=== PATIENT | male | born 1950 | race Caucasian/White ===

== ENCOUNTER 2019-10-13 10:33 | Inpatient (IN) | payer OTHER ==
[2019-10-13] VITALS (16 sets, daily range): BP systolic 45–107; BP diastolic 15–76
[~2019-10-13] VITALS: Ht 180.3 cm; Wt 69.6 kg
--- NOTE | ~2019-10-13 | EMS ---
[facility] [address] [place] [id number] EMS Patient Care Report Name: DANIELLE VILLELA Room #: 440-P ADM IN M.R.#: [id number] Admission: 10/13/19 Attend Phys: Alton Jovel MD Discharge: Date of : 46 Report #: [id number] THIS REPORT FOR: //name// Report Transmitted: 10/15/2019 09:00 EMS Care Summary [place], [place]/[facility] Incident [id number] @ 10/13/2019 09:47 Incident Location [address] [place] [address] Patient DANIELLE VILLELA Male, 69 Years 1950 Patient Address [address] [place] [address] Patient History Cancer, Unspecified, Patient Allergies No known allergies, Patient Medications Loperamide, Atorvastatin, Dexamethasone, Alprazolam, Duloxetine, Levothyroxine, Gabapentin, Aspirin, Disposition Transported No Lights/[place] Dispatch Reason Sick Person Transported To [facility] Narrative dispatched for a sick person. upon arrival pt was found laying in bed. he stated that he woke up weaker then normal. pts was on scene and stated that the pt had stage 4 cancer and was usually weak but this was not normal. pt also stated that he was having some lower back pain that felt like spasms. the then stated that the pt had a fever the previous day but was self administered some Tylenol which help subside the fever. pt denied any nausea or [facility] [address] [place] [address] EMS Patient Care Report Name: DANIELLE VILLELA Room #: 440-P ADM IN M.R.#: [id number] Admission: 10/13/19 Attend Phys: Alton Jovel MD Discharge: Date of : 46 Report #: [id number] shortness of breath. pt was transferred onto the stretcher which was placed next to the bed via draws sheet method. once in the ambulance vitals were obtained with a patent iv established. 4 lpm via nc was then administered to the pt. his saturation then improved during transport. after arrival pt was transferred onto ed bed via draw sheet method. Initial Vitals @10:19P: 87,BP: 59/41,Pain: 6/10,GCS: 15,SpO2: 79, @10:24P: 80,R: 20,BP: 77/51,Pain: 6/10,GCS: 15,SpO2: 91,Revised Trauma: 11, @10:17P: 86,R: 20,BP: 69/44,Pain: 6/10,GCS: 15,SpO2: 79,Revised Trauma: 10, Assessments @09:57MENTAL:Person Oriented,Time Oriented,Place Oriented,Event Oriented,SKIN:HEENT:Head/Face: No Abnormalities,Neck/Airway: No Abnormalities,LUNG SOUNDS:General: No Abnormalities,ABDOMEN:General: No Abnormalities,PELVIS//GI:No Abnormalities,EXTREMITIES:Capillary Refill: Right Upper: < 2 Sec,Left Arm: No Abnormalities,Right Arm: No Abnormalities,Left Leg: No Abnormalities,Right Leg: No Abnormalities,PULSE:Radial: 2+ Normal,NEURO:No Abnormalities, Impression Generalized Weakness Procedures @10:20Oxygen FlowRate: 4 Device: Nasal Cannula (NC) Response: ImprovedSucceeded@10:18Normal Saline (.9% NaCl) 100cc (20 ga) Site: Antecubital-LeftResponse: UnchangedSucceeded Timeline 09:45,Call Received 09:45,Dispatch Notified 09:47,Dispatched 09:48,En Route 09:56,On Scene 09:57,At Patient 10:17,BP: 69/44 M,PULSE: 86,RR: 20 R,SPO2: 79 Ox,ETCO2: ,BG: ,PAIN: 6,GCS: 15, 10:17,Depart Scene 10:18,Normal Saline (.9% NaCl) 100cc 20 ga Site: Antecubital-Left,Response: UnchangedSucceeded, 10:19,BP: 59/41 M,PULSE: 87,RR: R,SPO2: 79 Ox,ETCO2: ,BG: ,PAIN: 6,GCS: 15, 10:20,Oxygen FlowRate: 4 Device: Nasal Cannula (NC) Response: ImprovedSucceeded, 10:24,BP: 77/51 M,PULSE: 80,RR: 20 R,SPO2: 91 Ox,ETCO2: ,BG: ,PAIN: 6,GCS: 15, 10:25,At Destination 10:41,Call Closed Disclaimer [facility] [address] [place] [address] EMS Patient Care Report Name: DANIELLE VILLELA Room #: 440-P ADM IN M.R.#: [id number] Admission: 10/13/19 Attend Phys: Alton Jovel MD Discharge: Date of : 46 Report #: [id number] v1.1 Copyright 2020 [employer] This EMS Care Summary contains data elements from the applicable legal record (which may be displayed differently). It is designed to provide pertinent information for the following purposes: continuity of care, clinical quality, and state data reporting. The complete legal record is available to ED staff and administrators of the receiving hospital in [facility]'s Patient Tracker. All data is provided "as is."
--- NOTE | ~2019-10-13 | HC ---
[facility] [place] [address] CONSULTATION Name: DANIELLE VILLELA Room #: 245-P [facility] IN .R.#: [id number] Admission: 10/13/19 Attend Phys: Alton Jovel MD Discharge: Date of : 46 Report #: [id number] THIS REPORT FOR: cc: PENNIE Everett family physician/PCP PENNIE Everett family physician/PCP Bharati Bush MD ~ CC: Alton CASPER physician/PCP Jose Fournier REASON FOR CONSULTATION: Elevated creatinine. HISTORY OF PRESENT ILLNESS: A 69-year-old with history of renal cell carcinoma with mets to the bone. He presented to the hospital yesterday with his , reporting that he has been having some weakness with decreased oral intake. He denies any abdominal pain. Family also reported some diarrhea. There is a history of fever on their presentation and the patient was admitted to rule out COVID-19 infection. Currently, the patient is followed by Hematology/Oncology for his renal cell carcinoma. He is status post nephrectomy. He received appropriate IV fluid resuscitation on his presentation and his creatinine has come down from 2.4 to 1.6 to 1.2. He had hyperkalemia; however, this has resolved with potassium coming down to a normal level at 5. I was consulted to manage his acute kidney injury. PAST MEDICAL HISTORY: 1. Renal cell carcinoma post-nephrectomy. 2. Undergoing chemotherapy. 3. Depression. 4. Anxiety. 5. Hypothyroidism. SOCIAL HISTORY: He lives with his . REVIEW OF SYSTEMS: GENERAL: Significant for fever. CARDIOVASCULAR: No chest pain or palpitation. PULMONARY: Significant for cough, but no hemoptysis. GASTROINTESTINAL: As per the history of present illness. GENITOURINARY: No frequency, no urgency. MUSCULOSKELETAL: Myalgias. SKIN: No rash or ulcerations. HOME MEDICATIONS: 1. Atorvastatin. 2. Aspirin. 3. Gabapentin. 4. Levothyroxine. [facility] [address] [place] [address] CONSULTATION Name: DANIELLE VILLELA Room #: [facility]#: [id number] Admission: 10/13/19 Attend Phys: Alton Jovel MD Discharge: Date of : 46 Report #: [id number] 6. Celecoxib. 7. Dexamethasone. PHYSICAL EXAMINATION: GENERAL: He is alert, oriented, in no apparent distress. VITAL SIGNS: Blood pressure is 98/58, temperature is 36, pulse rate is 66, respiratory rate is 8. HEAD AND NECK: No jugular venous distention. CHEST: No crackles. CARDIOVASCULAR: No rub. ABDOMEN: Soft, nontender. EXTREMITIES: Lower extremities, no edema. LABORATORY DATA: Reviewed. Hemoglobin is 9.6. Sodium is 139, potassium is 5, BUN is 30, creatinine is 1.2 TSH is high at 35. IMPRESSION AND PLAN: 1. Acute kidney injury due to hypertension. 2. Solitary kidney, status post nephrectomy undergoing chemotherapy for renal cell carcinoma. 3. The patient responded very well to IV fluid. His creatinine is now down to his normal level. Continue with aggressive fluid resuscitation. No need for any pressors as long as the patient is able to tolerate fluids. 4. He is being ruled out for potential infection as a source of his fever. He was started on appropriate antibiotic and thyroid along with steroid replacement given his significant hypotension and hyperkalemia. 5. No further renal recommendations. I will sign off. By: [id number] 1112 Bharati Bush MD /nt
[~2019-10-13 10:33] MED LIST: ACETAMIN-CODE12.5 ML PO; ASPIRIN81 M2 PO; ATORVASTATIN CA10 MG PO; CELEBREX 200 M200 MG PO; DEXILANT30 MG PO; EFFIENT10 MG PO; HYDROCODON-ACE1 EAC5 PO; METOPROLOL SUCC25 M1 PO; MULTI-VITAMIN1 EAC5 PO; PROTONIX40 M1 PO
[2019-10-13 11:11] LABS: BASOPHILS 0.4 % (0.0-2.0); EOSINOPHILS 0.1 % (0.0-3.0); HEMATOCRIT 39.7 % (42.0-52.0); HEMOGLOBIN 13.2 gm/dL (14.0-18.0); LYMPHOCYTES 9.2 % (24.0-44.0); MCH 31.9 pg (26.0-34.0); MCHC 33.2 g/dL (28.0-37.0); MONOCYTES 3.3 % (1.0-8.0); PLATELET COUNT 252 thou/uL (150-400); RBC 4.14 mil/uL (4.50-6.00); RDW 25.2 % (10.5-14.5); WBC 9.2 thou/uL (4.0-11.0)
[2019-10-13] MEDS ORDERED: ALPRAZOLAM XR3 MG PO (11:27)
[2019-10-13] MEDS ORDERED: CABOMETYX60 MG PO (11:28)
[2019-10-13] MEDS ORDERED: CALCIUM + D3 E1 EACH PO (11:30)
[2019-10-13] MEDS ORDERED: CELEBREX 200 M200 MG PO (11:30)
[2019-10-13] MEDS ORDERED: DEXAMETHASONE 22 M1 PO (11:31)
[2019-10-13] MEDS ORDERED: CYMBALTA60 MG PO (11:31)
[2019-10-13] MEDS ORDERED: GABAPENTIN100 MG PO (11:32)
[2019-10-13] MEDS ORDERED: LEVOXYL137 MCG PO (11:32)
[2019-10-13] MEDS ORDERED: ONDANSETRON ODT4 MG PO (11:33)
[2019-10-13] MEDS ORDERED: LOPERAMIDE2 MG PO (11:33)
[2019-10-13] MEDS ORDERED: OXYCODONE HCL E40 MG PO (11:34)
[2019-10-13] MEDS ORDERED: ROXICODONE5 M2 PO (11:35)
[2019-10-13 11:40] LABS: ALBUMIN 3.1 g/dL (3.4-5.0); ANION GAP 8 mmol/L (7-16); BUN 40 mg/dL (7-18); CALCIUM 8.5 mg/dL (8.5-10.1); CHLORIDE 98 mmol/L (98-107); CO2 25 mmol/L (21-32); CREATININE 2.4 mg/dL (0.7-1.3); DIRECT BILIRUBIN < 0.1 mg/dL (<0.1-0.2); GLUCOSE 88 mg/dL (74-106); SGOT 51 U/L (15-37); SGPT 37 U/L (30-65); SODIUM 131 mmol/L (136-145); TOTAL BILIRUBIN 0.9 mg/dL (<0.1-1.0); TOTAL PROTEIN 7.1 g/dL (6.4-8.2)
[2019-10-13 11:44] LABS: POTASSIUM 6.2 mmol/L (3.5-5.1)
[2019-10-13 12:49] LABS: ANISOCYTOSIS 3+
[2019-10-13 12:50] LABS: MACROCYTES 1+; MICROCYTES 1+
--- NOTE | 2019-10-13 14:09 | EKG ---
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
--- NOTE | 2019-10-13 15:48 | NUR ---
VASCULAR ACCESS CONSULTED FOR CVAD. PT HAS LOW BP. ORDER,CONSENT,LABS,HISTORY [id number]. RIJ WAS WIDELY PATENT WITH USG. 25CM 6FR POWER JACC INSERTED TO 6CM EXTERNAL. CXR STATED TOO DEEP, WITHDREW ADDITIONAL 3CM FOR TOTAL 9CM 2ND CXR CONFIRMED CAJ. RIJ RELEASED FOR IMMEDIATE USE PER PROTOCOL TO CONSTANZA MISTRY
[2019-10-13 16:43] LABS: URINE BILIRUBIN NEGATIVE (Negative); URINE BLOOD NEGATIVE (Negative); URINE CLARITY CLEAR; URINE COLOR YELLOW; URINE GLUCOSE-RANDOM* NEGATIVE (Negative); URINE KETONES NEGATIVE (Negative); URINE LEUKOCYTES-REFLEX NEGATIVE (Negative); URINE NITRITE-REFLEX NEGATIVE (Negative); URINE PROTEIN (DIPSTICK) TRACE (Negative); URINE SPECIFIC GRAVITY 1.025 (1.005-1.035); URINE UROBILINOGEN 0.2 E.U./dl (0.2-1.0)
--- NOTE | 2019-10-13 17:32 | NUR ---
PATIENT ESCORTED TO ICU FROM ED BY RN. PATIENT AOX4, FORGETFUL. SINGH PATENT AND SECURED. PATIENT RECEIVED CHLOROHEXADINE WIPE BATH. ON MONITOR. SCD'S IN PLACE, CONSENTS SIGNED. FALL PRECAUTIONS IN PLACE AND EDUCATION PROVIDED TO PATIENT. ARRIVED WITHOUT ANY MEDICATION INFUSING. SBP 106. PATIENT USED BEDPAN ON ARRIVAL.
[2019-10-13 21:31] LABS: BE(vivo) -8.5 mmol/L (-2 to +3); HCO3 17.7 mmol/L (22.0-26.0); PO2 86.5 mmHg (80.0-100.0); sO2 95.4 % (92.0-98.0)
[2019-10-13 21:33] LABS: pH 7.275 (7.360-7.450)
[2019-10-13 21:57] LABS: HEMATOCRIT 29.2 % (42.0-52.0); MCH 32.1 pg (26.0-34.0); MCHC 32.8 g/dL (28.0-37.0); MCV 97.8 fL (80.0-100.0); RBC 2.98 mil/uL (4.50-6.00); RDW 25.3 % (10.5-14.5); WBC 7.2 thou/uL (4.0-11.0)
[2019-10-13 22:06] LABS: HEMOGLOBIN 9.6 gm/dL (14.0-18.0); PLATELET COUNT 163 thou/uL (150-400)
[2019-10-13 22:11] LABS: CALCIUM 7.1 mg/dL (8.5-10.1); CREATININE 1.6 mg/dL (0.7-1.3)
[2019-10-13 22:12] LABS: APTT 45.4 Seconds (24.5-32.8); FIBRINOGEN 336.8 mg/dL (210-360); INR 1.2; PROTIME 12.7 Seconds (9.3-11.4)
[2019-10-13 22:15] LABS: POTASSIUM 4.9 mmol/L (3.5-5.1)
[2019-10-13 22:18] LABS: ALBUMIN 2.2 g/dL (3.4-5.0); TOTAL BILIRUBIN 0.9 mg/dL (<0.1-1.0); TOTAL PROTEIN 5.6 g/dL (6.4-8.2)
[2019-10-13 23:06] LABS: ABSOLUTE NEUTROPHILS 6.5 thou/uL (1.4-8.2); ANISOCYTOSIS 1+; POLYCHROMASIA OCCASIONAL
[2019-10-14] VITALS (17 sets, daily range): BP systolic 85–176; BP diastolic 54–97
[2019-10-14 05:44] LABS: HEMOGLOBIN 9.6 gm/dL (14.0-18.0); MCH 32.2 pg (26.0-34.0); MCV 97.5 fL (80.0-100.0); RBC 2.97 mil/uL (4.50-6.00); RDW 25.9 % (10.5-14.5); WBC 6.5 thou/uL (4.0-11.0)
[2019-10-14 06:07] LABS: CALCIUM 6.4 mg/dL (8.5-10.1); CREATININE 1.2 mg/dL (0.7-1.3)
--- NOTE | 2019-10-14 07:52 | NUR ---
ASSESSMENTS CHARTED, MEDS GIVEN CHARTED. PATIENT GOES BY [facility]. ARRIVED ON DAY SHIFT. CONSULTS WERE CALLED ON BELL CLERK, DR. QUEZADA PUT HIM ON SEPSIS PROTOCOL. DR. WOOD TWEEKED THE ORDERS TO GIVE MORE IV FLUID BOLUS AND NOT START THE LEVOPHED. PATIENTS LABS MOVED TOWARDS NORMAL RANGE. PATIENT SLEPT MOST OF NIGHT. PATIENT WAS OBSERVED PERIODS OF APNEA DURING SLEEP. BREATHS WENT DOWN TO 7 BREATHS A MINUTE AT TIMES DURING SLEEP.
--- NOTE | 2019-10-14 11:50 | NUR ---
ASSESSMENT: CM REVIEWED CHART AND SPOKE WITH PATIENTS . PT WAS ADMITTED DUE TO WEAKNESS AND SOB. PT IS CURRENTLY IN ISOLATIONG AND BEING TESTED FOR COVID 19. RESULTS ARE STILL PENDING. PT IS CURRENTLY ON 2L OXYGEN AND IS NOT ON ANY AT HOME. PTS REPORTS THEY LIVE IN A HOME WITH TWO STEPS TO ENTER WITH HANDRAILS AND NO STEPS ONCE INSIDE. PT NORMALLY AMBULATES WITH A CANE OF WALKER. PT HAS A GRAB BAR AND SHOWER CHAIR AND IS INDEPENDENT WITH ADLS. PT HAS HAD A PAST HX OF HH BUT UNSURE OF WHAT THE AGENCY IS. PT HAS ALSO BEEN TO AN ACUTE REHAB IN THE PAST AFTER A SURGERY (RHOP). REPORTS SHE WOULD LIKE THERAPY TO SEE PATIENT BEFORE HE LEAVES. CM DISCUSSED WITH ATTENDING. PT/OT WILL EVAL PT PRIOR TO DISCHARGE. PLANS ARE FOR PATIENT TO MOVE OUT OF ICU TODAY. CM WILL CONTINUE TO FOLLOW TO ASSIST NEEDED.
--- NOTE | 2019-10-14 12:20 | NUR ---
ASSESSMENT: CM REVIEWED CHART AND SPOKE WITH PATIENTS . PT WAS ADMITTED DUE TO WEAKNESS AND SOB. PT HAS PAST HX OF RENAL CA. PT IS CURRENTLY IN ISOLATIONG AND BEING TESTED FOR COVID 19. RESULTS ARE STILL PENDING. PT IS CURRENTLY ON 2L OXYGEN AND IS NOT ON ANY AT HOME. PTS REPORTS THEY LIVE IN A HOME WITH TWO STEPS TO ENTER WITH HANDRAILS AND NO STEPS ONCE INSIDE. PT NORMALLY AMBULATES WITH A CANE OF WALKER. PT HAS A GRAB BAR AND SHOWER CHAIR AND IS INDEPENDENT WITH ADLS. PT HAS HAD A PAST HX OF HH BUT UNSURE OF WHAT THE AGENCY IS. PT HAS ALSO BEEN TO AN ACUTE REHAB IN THE PAST AFTER A SURGERY (RHOP). REPORTS SHE WOULD LIKE THERAPY TO SEE PATIENT BEFORE HE LEAVES. CM DISCUSSED WITH ATTENDING. PT/OT WILL EVAL PT PRIOR TO DISCHARGE. PLANS ARE FOR PATIENT TO MOVE OUT OF ICU TODAY. PT REMAINS ON IV ANBX AND IV FLUIDS. CM WILL CONTINUE TO FOLLOW TO ASSIST NEEDED.
--- NOTE | 2019-10-14 12:49 | NUR ---
ASSESSMENT CHARTED, ALERT AND ORIENTED 3-4, MEDS GIVEN SCHEDULED, AND MEDICATED FOR PAIN INDICATED. VSS AND SR ON THE MONITOR. SINGH TO DD WITH AN ADEQUATE AMOUNT OF URINE AT THIS TIME. PROGRESSING TOWARDS GOALS AND WILL CONTINUE TO MONITOR. ORDERS TO TRANFER IS IN WAITING FOR MED/SURG BED.
--- NOTE | 2019-10-15 03:32 | NUR ---
RECIEVED CARE OF THIS PATIENT AT 1900 FROM ICU. BP WAS UP, CALLED TO GET SOMETHING, RECIEVED MED AND GIVEN. AT MN BP WAS 113/54. C/O PAIN IN FRANKLIN LEGS OF 2. DAUGHTER CALLED 3TIMES. CONCERNED ABOUT RAISED BP AND MEDS PATIENT WAS GETTING. IV IN RIJ WITH FLUIDS INFUSING. PATIENT ALERT AND ORIENTED X4 BUT IS FORGETFUL. TOLD FAMILY EARLIER THAT HE WAS AT A HOTEL. TOLD THIS NURSE THAT HE TOLD THEM THAT AND THAT HE WAS NOT IN A HOTEL BUT IN THE HOSPITAL. SLEPT MOST OF THIS SHIFT.
[2019-10-15 03:44] VITALS: BP 132/85
[2019-10-15 05:48] LABS: CALCIUM 6.4 mg/dL (8.5-10.1); CREATININE 0.9 mg/dL (0.7-1.3)
[2019-10-15 06:20] LABS: POTASSIUM 3.6 mmol/L (3.5-5.1)
--- NOTE | 2019-10-15 10:07 | HC ---
[facility] [place] [address] CONSULTATION Name: DANIELLE VILLELA Room #: 440-P [facility] IN ..#: [id number] Admission: 10/13/19 Attend Phys: Alton Jovel MD Discharge: Date of : 46 Report #: [id number] THIS REPORT FOR: cc: PENNIE Everett family physician/PCP PENNIE Everett family physician/PCP Kassie Yanes MD ~ CC: Alton CASPER physician/PCP Jose Fournier DATE OF SERVICE: 10/14/2019 ENDOCRINE CONSULTATION CONSULTING PHYSICIAN: Dr. Jovel. REASON FOR CONSULTATION: Severe hypothyroidism. HISTORY OF PRESENT ILLNESS: This is a 69-year-old male patient whose medical background is significant for multiple medical issues including renal carcinoma, solitary kidney, hypothyroidism, who was admitted here following progressive issues with fever and weakness. It appears that the patient has gotten progressively weak and dehydrated and was less responsive and lethargic to where he was admitted for further care and monitoring. There have not been issues with chest pain, shortness of breath, cough, nausea or vomiting. The patient has chronic hypothyroidism and is maintained on a regimen of levothyroxine 137 mcg daily, which is reportedly consistent regimen of his. Also, the patient is noted to have hypothyroidism and is maintained on atorvastatin 20 mg daily. Again, the patient is known to have a history of renal carcinoma, status post nephrectomy with potential or with possible baseline chronic kidney disease. REVIEW OF SYSTEMS: CONSTITUTIONAL: Lethargy, fatigue, tiredness, reported fever, but not chills, no body weight changes. HEENT: Negative for sore throat, sinus pain or ear drainage. PULMONARY: No shortness of breath, cough or hemoptysis. CARDIAC: Lightheadedness. Reports of low blood pressure. No syncope, no chest pain. GASTROINTESTINAL: No abdominal pain, nausea, vomiting or changes in bowel movement frequency; however, reportedly had a diminished p.o. intake. NEUROLOGY: Negative for loss of consciousness, seizure activity. Severe frequent headaches. [facility] [address] [place] [address] CONSULTATION Name: TIKADANIELLE Room #: [address] [place] [address] [place] ..#: [id number] Admission: 10/13/19 Attend Phys: Alton Jovel MD Discharge: Date of : 46 Report #: [id number] SKIN: Negative for rash, ulceration or other significant changes. Otherwise, review of systems noncontributory other than those mentioned in HPI. PAST MEDICAL HISTORY: 1. Renal cell carcinoma. 2. Chronic kidney disease. 3. Anxiety. 4. Depression. 5. Hypothyroidism. 6. Neuropathy. 7. Hyperlipidemia. 8. Acid reflux disease. 9. Benign prostatic hypertrophy. 10. Osteoarthritis. 11. History of CAD, status post stent placement in 2010, status post CABG in 10/2015. PAST SURGICAL HISTORY: Includes thyroidectomy, appendectomy, bilateral knee replacements, CABG x 3 in 10/2015, nephrectomy. OUTPATIENT MEDICATIONS: Include: 1. Aspirin 81 mg daily. 2. Multivitamin daily. 3. Atorvastatin 20 mg daily. 4. Alprazolam 0.5 mg daily p.r.n. 5. ____ 60 mg daily. 6. Calcium carbonate with vitamin D daily. 7. Celebrex 200 mg daily. 8. Dexamethasone 1 mg p.o. b.i.d. 9. Cymbalta 60 mg daily. 10. Gabapentin 200 p.o. q. 8 hours. 11. Levothyroxine 137 mcg daily. 13. Loperamide 2 mg q. 4 hours p.r.n. 14. Oxycodone 40 mg q. 12 hours. ALLERGIES: No known drug allergies. FAMILY HISTORY: Noncontributory. SOCIAL HISTORY: The patient is an ex-smoker. There are no reports of active alcohol use or illicit drug use. PHYSICAL EXAMINATION: GENERAL: male patient who is not in apparent pain or distress. VITAL SIGNS: Blood pressure 117/71, heart rate 79 beats per minute, respirations 14 per minute, temperature 35.9 [place] [address] CONSULTATION Name: DANIELLE VILLELA Room #: 440-[facility].#: [id number] Admission: 10/13/19 Attend Phys: Alton Jovel MD Discharge: Date of : 46 Report #: [id number] CONSTITUTIONAL: The patient is sitting up in bed, appears lethargic, tired, but not in active pain or distress. HEENT: Anicteric sclerae. Intact extraocular motions. NECK: Supple, no JVD, no thyromegaly. The patient has a healed thyroidectomy scar. CHEST: Noted for moderate entry bilaterally with scattered rales and rhonchi. No wheeze or crackles. HEART: Regular rate and rhythm without murmurs or gallops. ABDOMEN: Soft, lax. No guarding. Active bowel sounds. EXTREMITIES: Lower extremity: No skin breaks or ulcerations. Trace edema is noted over both ankles. NEUROLOGIC: Awake, alert and interactive. Sensory deficits over both lower extremities, but moves all limbs spontaneously. PSYCH: Normal mood and affect, interactive. LABORATORY RESULTS: The patient had 3 blood glucose measurements ranging from 75-81 mg/dL. Otherwise, sodium 139, potassium 5.0, chloride 110, CO2 of 20, anion gap 9, BUN 30, creatinine 1.2, glucose 96, AST 33, total bilirubin 0.9, calcium 6.4, ALT 25, total protein 5.6, albumin 2.2. EGFR 60. Lactic acid 0.7. Total CPK 242. Troponin undetectable. Free T4 of 1.0. INR 1.2. White blood count 6.5, hemoglobin 9.6, hematocrit 29, platelets 164. TSH 35.295. He is being ruled out for COVID-19. ASSESSMENT AND PLAN: 1. Hypothyroidism, chronic. Undoubtedly, the patient's TSH is vastly uncontrolled at 35; however, this is in conjunction with a seemingly low normal free T4 at 1.0. The immediate implication is that of inconsistent levothyroxine intake as an outpatient. Given this outlook, I would only slightly raise his levothyroxine dosage to 150 mcg daily with a stress on the importance of consistent levothyroxine intake and proper intake on an empty stomach every morning for optimal absorption. Thyroid function studies will be needed again in 6-8 weeks to ensure the patient's stability. 2. Hyperlipidemia. The patient is currently on atorvastatin therapy and tolerates it well, he is to continue with the same. 3. Hypocalcemia. Significant, but falls within normal limits when corrected for the issue of hypoalbuminemia. 4. Hypotension, weakness. The patient presented with progressive lethargy, weakness, hypotension. I would like to obtain a random cortisol level to rule out the possibility of adrenal insufficiency. I certainly appreciate this consultation by Dr. Jovel. <ELECTRONICALLY SIGNED> By: Kassie Yanes MD 10/15/19 1007 1222 1414 Kassie Yanes MD /nt
[2019-10-15] MEDS ORDERED: CEFDINIR300 MG PO (11:44)
[2019-10-15] MEDS ORDERED: CULTURELLE KID1 EAC1 PO (11:45)
[2019-10-15 12:11] VITALS: BP 132/85
--- NOTE | 2019-10-15 12:12 | NUR ---
CARE TEAM INDICATED THAT PT IS MEDIALLY STABLE TO DISCHARGE HOME THIS DAY TO SELF CARE. PT HAS ALL RECOMMENDED DME. NO OTHER CM INTERVENTON INDICATED. PT'S SPOUSE TO PROVIDE DC TRANSPORT HOME AT 1500. NO OTHER CM INTERVENTION INDICATED. CASE CLOSED.
[2019-10-15] MEDS ORDERED: SYNTHROID100 MC1 PO (14:50)
--- NOTE | 2019-10-15 15:22 | NUR ---
VSS-AFEBRILE. LUNGS CLEAR-ROOM AIR. C/O PAIN IN BILATERAL LOWER EXTREMITIES. PAIN WELL CONTROLLED WITH PO PAIN MEDICATIONS. DISCUSSED DISCHARGE INSTRUCTIONS, INCLUDING NEW MEDICATIONS THAT HAVE BEEN PRESCRIBED. PATIENT AND SPOUSE VERBALIZED UNDERSTANDING OF ALL MATERIALS DISCUSSED. MEDICATED ON DC FOR PAIN OF 8/10. LEFT UNIT IN WHEELCHAIR WITH STAFF AND ALL PERSONAL BELONGINGS. LEFT HOPITAL WITH SPOUSE IN PRIVATE VEHICLE.
== END 2019-10-15 15:27 | disposition home or self-care (01) | DRG 682 ==
LOC: ER 10:33 → 4S 15:41 → EROBS 15:41 → ICU 15:41 → 4S 10-14 19:11
PROVIDERS: Emergency Medicine; Internal Medicine Pulmonary Disease; ADMIT Internal Medicine
PROC: 02H633Z Insertion of Infusion Device into Right Atrium, Percutaneous Approach (ICD-10-PCS; principal; 2019-10-13)
DX: N17.0 Acute kidney failure with tubular necrosis (principal); R57.1 Hypovolemic shock; J96.01 Acute respiratory failure with hypoxia; G93.41 Metabolic encephalopathy; E87.1 Hypo-osmolality and hyponatremia; C64.9 Malignant neoplasm of unspecified kidney, except renal pelvis; C79.51 Secondary malignant neoplasm of bone; Z96.653 Presence of artificial knee joint, bilateral; E89.0 Postprocedural hypothyroidism; I25.10 Atherosclerotic heart disease of native coronary artery without angina pectoris; K21.9 Gastro-esophageal reflux disease without esophagitis; E78.00 Pure hypercholesterolemia, unspecified; N40.0 Benign prostatic hyperplasia without lower urinary tract symptoms; M19.90 Unspecified osteoarthritis, unspecified site; F32.9 Major depressive disorder, single episode, unspecified; F41.9 Anxiety disorder, unspecified; N18.9 Chronic kidney disease, unspecified; E78.5 Hyperlipidemia, unspecified; I12.9 Hypertensive chronic kidney disease with stage 1 through stage 4 chronic kidney disease, or unspecified chronic kidney disease; E83.51 Hypocalcemia; I95.9 Hypotension, unspecified; G62.9 Polyneuropathy, unspecified; E87.5 Hyperkalemia; Z79.899 Other long term (current) drug therapy; Z90.49 Acquired absence of other specified parts of digestive tract; Z95.1 Presence of aortocoronary bypass graft; Z95.5 Presence of coronary angioplasty implant and graft; Z90.5 Acquired absence of kidney; Z20.828 Contact with and (suspected) exposure to other viral communicable diseases
CPT/HCPCS: 10078; 10100; 10102

== ENCOUNTER → 2019-12-28 | Outpatient (CLI) | payer OTHER, BC ==
[~2019-12-28] MED LIST changes: +ALPRAZOLAM XR3 MG PO; +CABOMETYX20 MG PO; +CABOMETYX60 MG PO; +CALCIUM + D3 E1 EACH PO; +CEFDINIR300 MG PO; +CEFUROXIME500 MG PO; +CULTURELLE KID1 EAC1 PO; +CYMBALTA60 MG PO; +DEXAMETHASONE 22 M1 PO; +GABAPENTIN100 MG PO; +LEVOXYL137 MCG PO; +LOPERAMIDE2 MG PO; +MIRALAX17 GM PO; +ONDANSETRON ODT4 MG PO; +OXYCODONE HCL E40 MG PO; +ROXICODONE5 M2 PO; +SENNA PLUS TAB1 EACH PO; +SYNTHROID100 MC1 PO
== END ==
LOC: SJCVC 09:58
PROVIDERS: ATTEND Internal Medicine
DX: I44.0 Atrioventricular block, first degree (principal); I25.10 Atherosclerotic heart disease of native coronary artery without angina pectoris; I47.2 Ventricular tachycardia; E78.5 Hyperlipidemia, unspecified; C64.9 Malignant neoplasm of unspecified kidney, except renal pelvis; Z95.1 Presence of aortocoronary bypass graft; Z79.899 Other long term (current) drug therapy; Z87.891 Personal history of nicotine dependence

== ENCOUNTER → 2020-01-18 | Outpatient (CLI) | payer OTHER, BC ==
[~2020-01-18] MED LIST changes: -CABOMETYX20 MG PO; -CEFUROXIME500 MG PO; -MIRALAX17 GM PO; -SENNA PLUS TAB1 EACH PO
== END ==
LOC: RAD 14:10
PROVIDERS: ATTEND Internal Medicine
DX: R13.10 Dysphagia, unspecified (principal)

== ENCOUNTER → 2020-03-21 | Outpatient (CLI) | payer OTHER, BC | LOC: RAD 06:05 | PROVIDERS: ATTEND Internal Medicine | DX: R13.10 Dysphagia, unspecified (principal) ==

== ENCOUNTER 2020-05-04 09:05 | Inpatient (IN) | payer OTHER, BC ==
[~2020-05-04] VITALS: Ht 175.3 cm; Wt 75.1 kg
--- NOTE | ~2020-05-04 | EMS ---
[facility] [address] [place] [address] EMS Patient Care Report Name: DANIELLE VILLELA II Room #: 201-P ADM IN M.R.#: [id number] Admission: 05/04/20 Attend Phys: Yana Rojas Discharge: Date of : 46 Report #: [id number] THIS REPORT FOR: //name// Report Transmitted: 05/04/2020 18:57 EMS Care Summary [place], [place]/[facility] Incident [id number] @ 05/04/2020 08:21 Incident Location [address] [place] [address] Patient DANAY VILLELA Male, 70 Years 1950 Patient Address [address] [place] [address] Patient History Bone Cancer,Kidney Cancer, Patient Allergies No known allergies, Patient Medications None Reported, Chief Complaint AMS Disposition Transported No Lights/[place] Reason Sick Person Transported To [facility] Narrative Arrived on the scene, with T15, for a 70 y/o male that is lying in his bed. said that the Pt is having a lot of pain in his hip and back area. said that the Pt has Kidney cancer that has moved to the bone. said that he has been having a lot more pain than normal and he is scheduled to have a [facility] [address] [place] [address] EMS Patient Care Report Name: DANIELLE VILLELA II Room #: 201-P ADM IN M.R.#: [id number] Admission: 05/04/20 Attend Phys: Yana Rojas Discharge: Date of : 46 Report #: [id number] MRI tomorrow to see if there is anything causing the pain. said that he isn't acting like his normal self either. 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 See Pt Assessment AMS, Possible Sepsis, Fever See Flowchart. Moved the Pt from the bed to the cot. In the process, Pt would scream in pain but would not tell me where or how much pain he is in. Transported to the hospital with zero change or incidents. Moved the Pt from the cot to the bed via sheet. Transferred care to receiving facility. Initial Vitals @08:44P: 71,R: 20,BP: 92/55,GCS: 14,CO: 8,SpO2: 94,Revised Trauma: 12, @08:54P: 79,R: 20,BP: 91/57,Pain: 6/10,GCS: 14,CO: 7,Revised Trauma: 12, @08:42P: 75,R: 20,BP: 101/59,GCS: 14,Temp: 101.1F,Glucose: 96,SpO2: 94,Revised Trauma: 12, Assessments @08:37MENTAL:Confused,Person Oriented,SKIN:Hot,HEENT:Head/Face: No Abnormalities,Eyes: No Abnormalities,Neck/Airway: No Abnormalities,LUNG SOUNDS:General: No Abnormalities,Left Upper: No Abnormalities,Right Upper: No Abnormalities,Left Lower: No Abnormalities,Right Lower: No Abnormalities,ABDOMEN:General: No Abnormalities,Left Upper: No Abnormalities,Right Upper: No Abnormalities,Left Lower: No Abnormalities,Right Lower: No Abnormalities,PELVIS//GI:EXTREMITIES:PULSE:NEURO: Impression Altered Mental Status Procedures @08:37ALS AssessmentResponse: UnchangedSucceeded@08:42Saline Lock 5cc (18 ga) Site: Antecubital-LeftResponse: UnchangedSucceeded Timeline 08:20,Call Received 08:20,Dispatch Notified 08:21,Dispatched 08:22,En Route 08:34,On Scene 08:37,At Patient 08:37,ALS Assessment,Response: UnchangedSucceeded, 08:42,Saline Lock 5cc 18 ga Site: Antecubital-Left,Response: UnchangedSucceeded, 08:42,BP: 101/59 M,PULSE: 75,RR: 20 R,SPO2: 94 Ox,ETCO2: ,B,PAIN: ,GCS: 14, [address] [address] EMS Patient Care Report Name: DANIELLE VILLELA EMBER Room #: 201-P ADM IN M.R.#: [id number] Admission: 05/04/20 Attend Phys: Yana Rojas Discharge: Date of : 46 Report #: [id number] 08:44,BP: 92/55 M,PULSE: 71,RR: 20 R,SPO2: 94 Ox,ETCO2: ,BG: ,PAIN: ,GCS: 14, 08:48,Depart Scene 08:54,BP: 91/57 M,PULSE: 79,RR: 20 R,SPO2: Ox,ETCO2: ,BG: ,PAIN: 6,GCS: 14, 08:55,At Destination 09:19,Call Closed Disclaimer v1.1 Copyright 2020 [employer] This EMS Care Summary contains data elements from the applicable legal record (which may be displayed differently). It is designed to provide pertinent information for the following purposes: continuity of care, clinical quality, and state data reporting. The complete legal record is available to ED staff and administrators of the receiving hospital in [employer] Patient Tracker. All data is provided "as is."
[2020-05-04 09:05] VITALS: BP 96/53
[2020-05-04 09:24] LABS: BASOPHILS 0.3 % (0.0-2.0); EOSINOPHILS 0.5 % (0.0-3.0); HEMOGLOBIN 10.8 gm/dL (14.0-18.0); LYMPHOCYTES 10.9 % (24.0-44.0); MCH 29.1 pg (26.0-34.0); MCHC 31.7 g/dL (28.0-37.0); MCV 91.8 fL (80.0-100.0); MONOCYTES 4.5 % (1.0-8.0); PLATELET COUNT 194 thou/uL (150-400); POLYS 83.8 % (36.0-66.0); RBC 3.71 mil/uL (4.50-6.00); RDW 16.9 % (10.5-14.5); WBC 7.2 thou/uL (4.0-11.0)
[2020-05-04 09:42] LABS: CALCIUM 9.5 mg/dL (8.5-10.1); CREATININE 1.4 mg/dL (0.7-1.3); POTASSIUM 4.7 mmol/L (3.5-5.1)
[2020-05-04 09:48] LABS: ALBUMIN 2.8 g/dL (3.4-5.0); TOTAL BILIRUBIN 0.5 mg/dL (0.2-1.0); TOTAL PROTEIN 7.3 g/dL (6.4-8.2)
[2020-05-04 09:58] LABS: AMP/METHAMP Negative (Negative); BARBITURATES Negative (Negative); BENZODIAZEPINES POSITIVE (Negative); COCAINE Negative (Negative); METHADONE Negative (Negative); OPIATES POSITIVE (Negative); PCP Negative (Negative)
[2020-05-04] MEDS ORDERED: SENNA PLUS TAB1 EACH PO (10:00)
[2020-05-04] MEDS ORDERED: MIRALAX17 GM PO (10:00)
[2020-05-04] MEDS ORDERED: CABOMETYX20 MG PO (10:02)
[2020-05-04 10:56] LABS: MAGNESIUM 1.9 mg/dL (1.8-2.4); TROPONIN-I <0.06 ng/mL (<0.06)
[2020-05-04 13:59] LABS: URINE BILIRUBIN NEGATIVE (Negative); URINE BLOOD 1+ (Negative); URINE CLARITY CLEAR; URINE COLOR YELLOW; URINE GLUCOSE-RANDOM* NEGATIVE (Negative); URINE KETONES NEGATIVE (Negative); URINE LEUKOCYTES-REFLEX NEGATIVE (Negative); URINE NITRITE-REFLEX NEGATIVE (Negative); URINE PROTEIN (DIPSTICK) NEGATIVE (Negative); URINE UROBILINOGEN 0.2 E.U./dl (0.2-1.0)
[2020-05-04 14:06] LABS: BACTERIA-REFLEX None Seen /HPF (None Seen); CASTS None Seen /LPF (None Seen); CRYSTALS None Seen /LPF (None Seen); SQUAMOUS None Seen /LPF (0-3); URINE RBC 3-10 Few /HPF (0-2); URINE WBC-REFLEX 0-5 Rare /HPF (0-5)
--- NOTE | 2020-05-04 14:38 | EKG ---
[facility] [place] [address] ELECTROCARDIOGRAM REPORT Name: DANIELLE VILLELA II Room #: REG [facility]..#: [id number] Admission: 05/04/20 Attend Phys: Discharge: Date of : 46 Report #: [id number] THIS REPORT FOR: cc: Jesus Manuel Rosario MD, Eric K. 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1950 Requested By: Fish Swain Order Number: [id number] MD: Kenny Lemon Measurements Intervals [place] Rate: 72 P: 25 [place]: 176 QRS: 64 QRSD: 107 T: 37 QT: 413 QTc: 453 Interpretive Statements Sinus rhythm Borderline low voltage, extremity leads Baseline wander in lead(s) V1 Compared to ECG 10/13/2019 12:03:24 No significant changes Electronically Signed On 05-04-2020 14:38:08 PHOTOGRAPHIC INTELLIGENCE OFFICER by Kenny Lemon [email or web address] <ELECTRONICALLY SIGNED> By: Kenny Lemon MD, FACC 05/04/20 1438 0932 0932 Kenny Lemon MD, FAC /EPI
--- NOTE | 2020-05-04 17:41 | NUR ---
PT CLEARED FROM ISOLATION PER MARIA EUGENIA DOUGLASS NURSE, AT 1719.
[2020-05-04 18:09] VITALS: BP 120/64
[2020-05-04 18:53] VITALS: BP 133/69
--- NOTE | 2020-05-04 19:59 | NUR ---
NEW ADMIT FROM ER ARRIVED 1829 INCREASED CONFUSION AND WEAKNESS. ALERTX3, FROM HOME WITH , RA DENIES SOB,DENIES PAIN, NSR ON TELE. VSS. PT INDICATES HE USES A WALKER AT HOME. SINGH IN PLACE NO BM NOTED 750 OUTPUT. NPO DUE TO DISPHAGIA, ST, PT,OT CONSULTED FOR EVALUATION. PT AND AWARE OF NPO STATUS. ADDED TO DESIGNATED VISITOR LIST. IV FLUIDS INFUSION RIGHT FORARM. REPORTED OFF TO NIGHT RN.
--- NOTE | 2020-05-04 23:19 | NUR ---
PATIENTS CARES WERE ASSUMED AT HIFT CHANGE. PATIENT HERE SINCE 10 OCLOCK AND NOT ADMITTED. pATIENT IS NOW ADMITTED AND ED REC WAS REVIEWED. PATIENT IS A KIDNEY CANCER PATIENT WITH METS TO THE BONE. THIS PATIENT WAS PLACED WITH NPO ORDERS FPR A PROCEDURE IN THE MORNING. THE ENOXAPARIN WAS HELD DUE TO A POSSIBLE BRONC.PATIENT WAS GIVEN 2 MG MORPHINE AND IS NOW RESTING WELL. THE BED IS IN THE LOW AND LOCKED POSITION
[2020-05-04 23:35] VITALS: BP 114/58
[2020-05-05] VITALS (7 sets, daily range): BP systolic 115–136; BP diastolic 62–80
--- NOTE | 2020-05-05 04:48 | NUR ---
PATIENT CARES WERE ASSUMED AT SHIFT CHANGE. THIS PATIENT CAME IN DUE TO MENTAL STATUS CHANGES. PATIENT IS TO REMAIN NPO DUE TO A SPEECH EVAL AND A POSSIBLE BRONC. PATIENT WAS GIVEN PAIN MEDS DUE TO C/O PAIN 03/26. HE DOES HAVE KIDNEY CANCER WITH METS TO THE BONE. THE BED IS IN A LOW AND LOCKED POSITION.
[2020-05-05 05:36] LABS: HEMATOCRIT 30.8 % (42.0-52.0); HEMOGLOBIN 9.8 gm/dL (14.0-18.0); MCH 29.1 pg (26.0-34.0); MCHC 31.7 g/dL (28.0-37.0); MCV 91.9 fL (80.0-100.0); RBC 3.35 mil/uL (4.50-6.00); WBC 9.4 thou/uL (4.0-11.0)
[2020-05-05 05:38] LABS: ALBUMIN 2.5 g/dL (3.4-5.0); CALCIUM 9.3 mg/dL (8.5-10.1); CREATININE 1.1 mg/dL (0.7-1.3); PHOSPHORUS 2.7 mg/dL (2.5-4.9); POTASSIUM 4.5 mmol/L (3.5-5.1)
--- NOTE | 2020-05-05 14:13 | NUR ---
PT ADMITTED RELATED TO METASTATIC KIDNEY CANCER, AKINESIA, DEHYDRATION. CM REVIEWED CHART AND SPOKE WITH CARE TEAM. CM CALLED AND SPOKE WITH PT AND SPOUSE OVER THE PHONE THIS DAY. SPOUSE INDICATED THAT THEY RESIDE IN A HOUSE WITH S STEPS TO ENTER AND NO STEPS PT USES INSIDE. SHE INIDCATED THAT PT HAS A FWW, CANE, 4WW, GB, AND SC FOR USE AT HOME. SHE INDICATED THAT FOR THE MOST PART PT HAD BEEN INDEPENDENT WITH ADLS SHE PROVIDES SOME ASSIST DUE TO WEAKNESS ON L SIDE. SPOUSE INDICATED THAT PT HAD BEEN GETTING ST THROUGH [facility]. THEY INDICATED THEY WOULD LIKE TO RESUME SERVICES WITH THEM UPON DC. THEY AREN'T INTERESTED IN PT OR OT BUT WOULD BE RECEPTIVE TO HAVING A NURSE VISIT. PT FOLLOWS AT FOR ONGOLOGY SERVICES. CARE TEAM INDICATED THAT PT WAS HAVING A BRONCH TODAY AND THAT PT MAY BE MEDICALLY STABLE TO DC HOME TOMORROW. PT AND SPOUSE WERE AWARE OF THIS. CLINICAL UPDATE TO BE SENT TO [facility]. CM TO FOLLOW INDICATED WITH DC PLANNING.
--- NOTE | 2020-05-05 17:52 | NUR ---
ASSUMED CARE PT SHIFT CHANGE. ASSESSMENT CHARTED.MEDS GIVEN PER AUG. PT ALERT AND ORIENTED. FORGETFUL AT TIMES. C/O BACK PAIN MANAGED WITH PO PAIN MEDS. PT UP WITH PHYS THERAPY TOLERATING WELL. APPETITE ADEQUATE. SINGH REMOVED PER PHYSICIAN ORDER. PT REQUESTS XANAX BE AVAILABLE AT NIGHT NIGHT FOR SLEEP, NOTIFIED PHYSICIAN, ORDER RECEIVED. SPOUSE AT BEDSIDE DURING SHIFT. MED RECORD REQUEST FAXED AWAITING RECORDS. PT CURRENTLY EATING DINNER WITH SPOUSE IN ROOM. DENIES NEEDS AT THIS TIME. CONTINUING TO MONITOR AND FOLLOW POC. WILL PASS ON REPORT TO NOC RN.
--- NOTE | 2020-05-05 22:30 | NUR ---
PATIENTS CARES WERE ASSUMED AT SHIFT CHANGE. PATIENT IS ALOT HAPPIER THIS SHIFT. HE WAS ABLE TO EAT AND DRINK. PAIN MEDS ARE ON BOARD. PATIENT WAS UP TO THE BATHROOM AT SHIFT CHANGE.
[2020-05-06 03:39] VITALS: BP 141/85
[2020-05-06 05:38] LABS: HEMOGLOBIN 9.4 gm/dL (14.0-18.0); MCH 29.7 pg (26.0-34.0); MCHC 32.5 g/dL (28.0-37.0); MCV 91.3 fL (80.0-100.0); RBC 3.17 mil/uL (4.50-6.00); RDW 16.9 % (10.5-14.5); WBC 7.8 thou/uL (4.0-11.0)
[2020-05-06 06:01] LABS: ALBUMIN 2.3 g/dL (3.4-5.0); CALCIUM 8.4 mg/dL (8.5-10.1); PHOSPHORUS 2.6 mg/dL (2.5-4.9); POTASSIUM 4.2 mmol/L (3.5-5.1)
--- NOTE | 2020-05-06 07:09 | HC ---
[facility] [place] [address] CONSULTATION Name: DANIELLE VILLELA II Room #: 201-P ADM IN M.R.#: [id number] Admission: 05/04/20 Attend Phys: Yana Rojas Discharge: Date of : 46 Report #: [id number] THIS REPORT FOR: cc: Jesus Manuel Rosario MD, Eric K. MD McKittrick, Richard James MD ~ DATE OF SERVICE: 05/04/2020 REASON FOR CONSULTATION: History of metastatic renal cell to the bone. HISTORY OF PRESENT ILLNESS: The patient is a 70-year-old male admitted to the hospital for possible fever and mental status changes and possible sepsis. The patient does not seem to have a good recollection much about the last several days. He mostly complains about lack of oral intake. He does use thickened when he is at home. Here in the hospital, there is some initial concern about perhaps overmedications from his opiates versus infection. Chest x-ray appears to be without acute process. If I understand correctly, I think his cultures are currently negative. He does have a history of pneumonias, thought secondary to aspiration in the past. The patient at this time denies any headache, any nausea, any constipation, any bleeding, any skin rash. PAST MEDICAL HISTORY: Notable for the initial diagnosis of metastatic clear cell carcinoma in approximately 02/2018. He underwent cytoreductive nephrectomy and resection of his left hip in the past. He began sunitinib on 07/03/2018. He had progression and on 01/08/2019, was switched to axitinib and pembrolizumab. It sounds like at a later date, I am not quite sure when, he had progression and was switched to cabozantinib, which is his current medication. His most recent imaging was approximately 03/30/2020. At that time, the synopsis is that his bone scan was thought to be stable and slightly improved. CAT scan was also mostly the same except there might have been some questionable bony progression, which might have been actually healing effect. He also has a history of hypertension; coronary artery disease, status post CABG; hyperlipidemia; knee surgery in the past; BPH; partial thyroid resection in the past and appendectomy in the past. His last outpatient white count was approximately 6.9, hemoglobin 11.3, platelets 217. Creatinine 1.03. Note that these are from approximately mid 03/2020. MEDICATIONS: Today include OxyContin 30 b.i.d., duloxetine 60 daily, pantoprazole 40 daily, levothyroxine 150 mcg daily, Lovenox 40 mg at bedtime, gabapentin 200 mg q. 8 scheduled, cefepime 1 gram q. 12, morphine p.r.n., Tylenol p.r.n., GlycoLax 1 cap daily p.r.n., nitroglycerin 0.4 mg p.r.n., Zofran p.r.n., had been on vancomycin which has now been held. [address] [address] CONSULTATION Name: DANIELLE VILLELA EMBER POLANCO Room #: 201-P [facility] IN M.R.#: [id number] Admission: 05/04/20 Attend Phys: Yana Rojas Discharge: Date of : 46 Report #: [id number] PHYSICAL EXAMINATION: VITAL SIGNS: Height is 5 feet 9 inches or 175.3 cm. Weight is 165.6 pounds or 75.1 kilograms. Blood pressure recently 116/62 with an O2 sat of 96%; respirations 16; pulse of 80; temperature afebrile, currently at 97.9. Note that on admit was 101.1. NEUROLOGIC: Face is symmetrical. Speech and thought pattern within normal range. LYMPHATICS: No enlarged lymph nodes in the supraclavicular, cervical, or axillary region. HEART: Regular rate. LUNGS: Without significant rales, rhonchi, or stridor. The patient appears to have unlabored respiration. EXTREMITIES: Without clubbing, cyanosis or edema. ABDOMEN: Nontender to brief exam. No masses. LABORATORY DATA: Lab review here had a creatinine of 1.4 on admit, today 1.1. Liver functions have been normal. Alkaline phosphatase slightly elevated at 127. Albumin low at 2.5. White count 9.4, hemoglobin 9.8, MCV 91.9, platelets 177. Differential nonacute. Note, he has been influenza A and B negative. He has been COVID by PCR negative. TSH 2.532. UA had 1+ blood, had a few rare white cells. Leukocytes were negative. Bacteria, none. ASSESSMENT AND PLAN: 1. Metastatic renal cell carcinoma, had been recently stable on cabozantinib. My guess is that he would like to continue this as in and/or outpatient. 2. Fever and marked confusion. Await final cultures. Continue cefepime. Electrolytes normal. 3. Renal insufficiency, stable at 1.1 now. 4. History of dysphagia, speech path to see if they will likely continue thickened. 5. History of coronary artery disease and stents. No chest pain. 6. Neuropathy. Continue gabapentin t.i.d. 7. Acquired hypothyroidism. Continue Synthroid replacement. 8. Chronic pain. Continue OxyContin 30 b.i.d. and p.r.n. The patient will need follow up with Dr. Larson at on discharge. <ELECTRONICALLY SIGNED> By: Uche Sanchez MD 05/06/20 [id number] Uche Sanchez MD /nt
[2020-05-06 08:00] VITALS: BP 127/65
[2020-05-06 08:37] VITALS: BP 121/74
[2020-05-06] MEDS ORDERED: CEFUROXIME500 MG PO ×2 (08:56→16:06)
[2020-05-06 09:12] VITALS: BP 127/65
--- NOTE | 2020-05-06 09:44 | NUR ---
CM SAW THAT DC ORDERS AND SUMMERY HAD BEEN ENTERED. CM FAXED ORDERES TO [facility] AND CALLED AND NOTIFIED THEM OF DISCHARGE HOME THIS DAY WITH RESUMPTIONM OF HH SERVICES AND ADDITION OF HH NURSING.
--- NOTE | 2020-05-06 10:30 | NUR ---
tele removed, both ivs removed. DC INSTRUCTIONS REVIEWED WITH PT AND , CORRECT [facility] ENTERED IN MED REC FOR PRESCRIPTION, WILL CALL ONCOLOGIST FOR F/U APPT AND WHERE TO DO LAB DRAWS. PT LEFT WITH AND TOOK ALL BELONGINGS.
== END 2020-05-06 10:31 | disposition home health service (06) | DRG 871 ==
LOC: ER 09:05 → 2N 18:50
PROVIDERS: Emergency Medicine; ADMIT Hospitalist; ATTEND Hospitalist
DX: A41.9 Sepsis, unspecified organism (principal); E43 Unspecified severe protein-calorie malnutrition; N17.9 Acute kidney failure, unspecified; G93.40 Encephalopathy, unspecified; Z20.828 Contact with and (suspected) exposure to other viral communicable diseases; Z96.653 Presence of artificial knee joint, bilateral; E89.0 Postprocedural hypothyroidism; I25.10 Atherosclerotic heart disease of native coronary artery without angina pectoris; E78.00 Pure hypercholesterolemia, unspecified; N40.0 Benign prostatic hyperplasia without lower urinary tract symptoms; M19.90 Unspecified osteoarthritis, unspecified site; E86.0 Dehydration; R29.898 Other symptoms and signs involving the musculoskeletal system; R13.10 Dysphagia, unspecified; G62.9 Polyneuropathy, unspecified; G89.29 Other chronic pain; Z90.49 Acquired absence of other specified parts of digestive tract; Z95.5 Presence of coronary angioplasty implant and graft; Z95.1 Presence of aortocoronary bypass graft; Z93.6 Other artificial openings of urinary tract status; Z85.53 Personal history of malignant neoplasm of renal pelvis; Z87.891 Personal history of nicotine dependence; Z79.891 Long term (current) use of opiate analgesic; Z68.24 Body mass index [BMI] 24.0-24.9, adult
CPT/HCPCS: 10081